=== PATIENT | female | born 1960 | race African-American/Black ===

== ENCOUNTER 2016-12-25 20:51 | Inpatient (IN) ==
--- NOTE | 2016-12-25 21:36 | Emergency Department Note ---
ISoraida Sierra, am scribing for, and in the presence of, Eugenie Adams DO 21: 30. IBryan Debra, DO, personally performed the services described in this documentation, ascribed by Barb Quigley in my presence, and it is both accurate and complete . Arrival - Arrival Chief Complaint: Weakness Stated Complaint: short of breath ED Nursing Triage Note: pt presented to triage via w/c with c/o weakness and decreased appetite x 2 weeks. pt also c/o SOB x 3 days and N/V x 1 day. pt denies fever and chest pain Mode of Arrival: Wheelchair Limitations: No Limitations Source: Patient - History of Present Illness HPI Narrative: Pt is a 56 y/o female that came to the ED with c/o weakness and loss of appetite that has been going on for 2 weeks now. Pt has associated sxs of SOB, N /V that began today, and frequent urination but denies any pain. Pt states she is drinking fluids and thinks her weakness is from the loss of appetite. Pt reports she thought she was doing okay until now. Pt has had a hysterectomy. No other complaints/pain in ED. Onset (ago): week(s) Consistency: constant Severity: mild Severity scale (1-10): 2 Quality: other Date of Last Menstrual Period: hyst Allergies/Adverse Reactions: Allergies Allergy/AdvReac Type Severity Reaction Status Date / Time No Known Allergies Allergy Unverified 12/25/16 21:01 Home Medications: Home Medications Medication Instructions Recorded Confirmed Type Cyclobenzaprine [Flexeril] 10 mg PO DAILY 12/25/16 12/25/16 History Lisinopril 20 mg PO DAILY 12/25/16 12/25/16 History Lovastatin 10 mg PO DAILY 12/25/16 12/25/16 History Potassium Chloride 10 meq PO DAILY 12/25/16 12/25/16 History Review of System - Review of System 12 point system: reviewed and no additional remarkable complaints except as stated - Review of System Constitutional: Present: weakness. Absent: fever Respiratory: Absent: cough Cardiovascular: Absent: chest pain Gastrointestinal: Present: nausea, vomiting. Absent: abdominal pain Genitourinary female: Present: frequency Musculoskeletal: Absent: arm pain, back pain, leg pain, neck pain Skin: Absent: rash Neurological: Absent: headache Psychiatric: Absent: anxiety Medical,Surgical,& Family Hx - Medical History Cardio: History of: Hypertension Endocrine: History of: Dyslipidemia Gastrointestinal: History of: GERD - Social History Smoking Status: Never smoker Frequency of Alcohol Use: None Type of Drug Use: None Exam Vital Signs: Vital Signs Temperature 98.2 F 12/25/16 20:54 Pulse Rate 113 H 12/25/16 22:15 Respiratory Rate 25 H 12/25/16 22:15 Blood Pressure 142/101 12/25/16 22:15 O2 Sat by Pulse Oximetry 99 12/25/16 22:15 - General General appearance: alert, in no apparent distress, obese - Head Head exam: Present: atraumatic, normocephalic - Eye Eye exam: Present: PERRL, EOMI - ENT ENT exam: Present: mucous membranes moist. Absent: mucous membranes dry - Neck Neck exam: Present: full ROM. Absent: tenderness - Chest Chest inspection: Present: symmetric chest wall rise. Absent: tenderness - Respiratory Respiratory exam: Present: normal lung sounds bilaterally. Absent: respiratory distress - Cardiovascular Cardiovascular exam: Present: normal rhythm, tachycardia, normal heart sounds - Abdominal Exam Abdominal exam: Present: soft. Absent: tenderness - Extremities Exam Extremities exam: Present: full ROM. Absent: tenderness - Back Exam Back exam: Present: full ROM. Absent: tenderness - Neurological Exam Neurological exam: Present: alert, oriented X3, CN II-XII intact. Absent: motor sensory deficit - Psychiatric Psychiatric exam: Present: normal affect, normal mood - Skin Skin exam: Present: warm, dry Results - Labs CBC & BMP: 12/25/16 22:03 12/25/16 22:03 Lab Results: I have reviewed the patients labs Labs: Laboratory Tests 12/25/16 12/25/16 22:03 22:03 WBC 12.3 H RBC 5.95 H Hgb 16.1 H Hct 50.7 H MCV 85.2 L MCHC 31.8 L MPV 12.2 H Neut % (Auto) 91.5 H Lymph % (Auto) 5.8 L Neut # (Auto) 11.2 H Lymph # (Auto) 0.7 L Urine Urobilinogen < 2.0 H Urine Leukocytes Small H Laboratory Tests 12/25/16 22:03 Sodium 127 L Potassium 6.3 H* Chloride 96 L Carbon Dioxide 7 L Anion Gap 30.3 H BUN 23 H Creatinine 2.00 H Glucose 1044 H* Calculated Osmolality 311.2 H Calcium 10.3 H Alkaline Phosphatase 235 H Total Protein 8.9 H Globulin 4.5 H Albumin/Globulin Ratio 0.9 L Laboratory Tests 12/25/16 23:43 b-Hydroxybutyric mmol/L 5.2 H Laboratory Tests 12/26/16 00:19 POC Glucose > 500 H* - Diagnostic Findings Procedure: Chest x-ray: report reviewed by me (No acute cardiopulmonary pathology identified. )
--- NOTE | 2016-12-25 21:52 | XRay Report ---
Portable chest Date:[12/25/2016] Clinical history: Shortness of breath Comparison: 02/21/2009 Technique: Portable AP sitting chest Findings: The heart is normal in size. The lungs are clear with unremarkable mediastinum. Minimal degenerative changes are noted. Impression: No acute cardiopulmonary pathology identified. PROCEDURE INTERPRETED AT [facility] DEPARTMENT OF RADIOLOGY Final Report Signed by: Dr. Altagracia Vieira
[2016-12-25 22:12] LABS: Basophils % 0.3 % (0.0-0.8); Hematocrit 50.7 VOL% (35.7-47.0); Hemoglobin 16.1 GM/DL (12.0-16.0); Immature Granulocytes % 0.4 %; Immature Granulocytes Absolute 0.05 #; Lymphocytes # 0.7 10*3/uL (1.4-4.0); Lymphocytes % 5.8 % (21.3-54.2); Mean Corpuscular HGB Conc 31.8 GM/DL (32-36); Mean Corpuscular Hemoglobin 27 PG (27-34); Mean Corpuscular Volume 85.2 FL (87-102); Mean Platelet Volume 12.2 FL (9.6-12.0); Monocytes # 0.2 10*3/uL (0.11-0.8); Neutrophils # 11.2 10*3/uL (1.4-7.4); Neutrophils % 91.5 % (38.7-73.9); Platelet Count 275 T/CUMM (130-400); Red Blood Count 5.95 MC/CUMM (3.8-5.5); Red Cell Distribution Width 14.2 % (9.3-17.3); White Blood Count 12.3 T/CUMM (4-12)
[2016-12-25 22:17] LABS: Apearance,Urine Slightly Hazy (Clear); Bacteria,Urine Occasional /HPF (Few); Bilirubin,Urine Negative (Negative); Blood, Urine Small mg/dL (Negative); Glucose,Urine (UA) >=500 mg/dL (Negative); Ketones,Urine 80 mg/dL (Negative); Mucus,Urine Occasional /LPF (Occasional); Nitrite,Urine Negative (Negative); Protein,Urine Negative; RBC,Urine 18 /HPF (0-4); Squamous Epithelial Cell,Urine Occasional /HPF (0-10); Urine Color Straw (Yellow); Urine Specific Gravity 1.023 (1.001-1.035); Urine Urobilinogen < 2.0 EU/DL (0.2-1.0); WBC,Urine 9 /HPF (0-6)
[2016-12-25] MEDS ORDERED: SODIUM CHLORIDE 0.9% 1,000 ML IV STA (22:50)
[2016-12-25] MEDS ORDERED: ONDANSETRON 4 MG/2 ML VIAL IV STA (22:50)
[2016-12-25] MEDS ORDERED: ONDANSETRON 4 MG/2 ML VIAL ONE (22:56)
[2016-12-25 22:59] LABS: PT Patient Result 10.8 SECS; Partial Thromboplastin Time 24.4 SECS (0-40)
[2016-12-25 23:33] LABS: Alanine Aminotransferase 23 U/L (13-56); Albumin 4.4 G/DL (3.4-5.0); Alkaline Phosphatase 235 U/L (45-117); Aspartate Amino Transferase 13 U/L (0-37); Blood Urea Nitrogen 23 MG/DL (7-18); Calcium 10.3 MG/DL (8.5-10.1); Osmolality,Calculated 311.2 MOS/KG (273-304); Sodium 127 MMOL/L (136-145); Total Protein 8.9 G/DL (6.4-8.3); Troponin I Only < 0.015 NG/ML (0.00-0.045)
[2016-12-25 23:35] LABS: Glucose 1044 MG/DL (74-106); Potassium 6.3 MMOL/L (3.5-5.1)
[2016-12-25] MEDS ORDERED: INSULIN REGULAR 100 UNIT/ML IV STA (23:37)
[2016-12-25] MEDS ORDERED: INSULIN REGULAR 100 UNIT/ML ONE (23:38)
[2016-12-26] MEDS ORDERED: INSULIN REGULAR DRIP 100 ML IV ONE (00:26)
[2016-12-26] MEDS: INSULIN REGULAR DRIP 100 ML IV SCH (00:31)
[2016-12-26] MEDS ORDERED: CYCLOBENZAPRINE 10 MG TABLET PO PRN (01:18)
[2016-12-26] MEDS ORDERED: SODIUM CHLORIDE 0.9% IV PRN (01:19)
[2016-12-26] MEDS ORDERED: SODIUM PHOSPHATE IV PRN (01:19)
[2016-12-26] MEDS ORDERED: MAGNESIUM SULF RIDER 4 GM in PREMIX 1 EACH IV PRN (01:19)
[2016-12-26] MEDS ORDERED: MAGNESIUM SULF RIDER 2 GM in PREMIX 1 EACH IV PRN (01:19)
[2016-12-26] MEDS ORDERED: SODIUM BICARB INJ 100 MEQ in STERILE WATER INJ 400 ML IV PRN (01:19)
[2016-12-26] MEDS ORDERED: DEXTROSE 50% 25 GM/50 ML VIAL IV PRN ×2 (01:19)
--- NOTE | 2016-12-26 01:23 | Hospitalist History & Physical ---
Assessment and Plan (1) DKA (diabetic ketoacidoses) Status: Acute Current Visit: Yes (2) Newly diagnosed diabetes Status: Acute Current Visit: Yes (3) Acute renal failure due to tubular necrosis Status: Acute Current Visit: Yes (4) Hyperkalemia Status: Acute Current Visit: Yes (5) Nausea Status: Acute Assessment and plan: Plan: Admit to ICU, start insulin infusion, check blood and urine cultures. Aggressive hydration, diabetes education, supportive care otherwise for nausea. Current Visit: Yes History of Present Illness Chief complaint: nausea and vomiting History of present illness: Ms. Nava is a 56 year old female with a few days of malaise, nausea and "just not feeling good." She denies fever, chills, chest pain, shortness of breath or diarrhea. She continued emergency room where her blood glucose was approximately 1000. Her lab work is consistent with DKA in the setting of newly discovered diabetes. She has a history of hypertension and dyslipidemia. She has had poor by mouth intake due to nausea, lack of energy. No pain no skin lesions, No headache. She denies dysuria however UA is consistent with possible UTI. I have been asked to admit the patient for further workup and treatment of DKA. Home Medications Medication Instructions Recorded Confirmed Type Cyclobenzaprine [Flexeril] 10 mg PO Q8H PRN 12/25/16 12/26/16 History Lisinopril 20 mg PO DAILY 12/25/16 12/25/16 History Lovastatin 10 mg PO DAILY 12/25/16 12/25/16 History Potassium Chloride 2 tablet PO BID 12/25/16 12/26/16 History Allergies Allergy/AdvReac Type Severity Reaction Status Date / Time No Known Allergies Allergy Unverified 12/25/16 21:01 Medical,Surgical,& Family Hx - Medical History Cardio: History of: Hypertension Endocrine: History of: Dyslipidemia Gastrointestinal: History of: GERD - Surgical History Reproductive Surgeries: Surgical HX of;: Hysterectomy - Family History Family History: noncontributory - Social History Smoking Status: Never smoker Frequency of Alcohol Use: None Type of Drug Use: None Marital Status: Unknown Functional capacity: independent ambulation Review of systems: A 12 point review of systems is negative except as specified in the HPI Exam - Constitutional Vitals: Period Temp Pulse Resp BP Sys/Martinez Pulse Ox Last 24 Hr 98.2 F 113-121 18-25 117-143/88-101 99-100 Exam: EXAM: CONSTITUTIONAL: non toxic, NAD HEENT: NC, AT, OP exhibits dry mucous membranes, SIMONE, EOMI CV: RRR no m/g/r RESP: clear B/L, no w/r/r GI: abd soft, NT, ND, +bowel sounds INTEGUMENTARY: no lesions or rash EXTREMITIES: no c/c/e NEURO: no focal deficits PSYCH: Drowsy, easily arousable and oriented Results - Labs CBC & BMP: 12/26/16 03:31 12/26/16 03:31 Lab Results: I have reviewed the past 24 hour labs - Diagnostic Findings Procedure: Chest x-ray: image reviewed by me, report reviewed by me
[2016-12-26] MEDS ORDERED: INSULIN REGULAR DRIP 100 ML IV SCH (01:30)
[2016-12-26 01:57] LABS: Band Neutrophils 2 % (0-10); Lymphocytes 7 % (20-55); Segmented Neutrophils 89 % (50-85); Total Cells Counted 100
[2016-12-26 01:58] LABS: Platelet Estimate Normal
[2016-12-26 02:11] LABS: Calcium 9.2 MG/DL (8.5-10.1); Osmolality,Calculated 310.2 MOS/KG (273-304); Potassium 4.6 MMOL/L (3.5-5.1)
[2016-12-26] MEDS ORDERED: SODIUM CHLORIDE 0.9% 1,000 ML IV ONE (02:30)
--- NOTE | 2016-12-26 03:13 | EKG Report ---
Stationary ECG Study [facility] Test Date: 12/26/2016 3:12:18 AM Pat Name: NANCY MAN Department: Room: 117 Gender: F Interventional Radiology Tech: MELODY : 1960 Requested by: Foster Jansen Order Number: [id number] Reading MD: KAYLIN GRIFFIN Intervals Sage Rate: 102 P: 51 ID: [id number] QRS: 40 QRSD: 90 T: 46 QT: 350 QTc: 409 Interpretive Statements SINUS TACHYCARDIA Electronically Signed On 12-26-16 22:31:07 CYTOTECHNOLOGIST SUPERVISOR by KAYLIN GRIFFIN [email or web address]
[2016-12-26 03:34] LABS: Allen Test Positive; Pt O2 Delivery Device Room Air
[2016-12-26 03:36] LABS: ABG Base Excess -20.4 MMOL/L (-2.5-2.5); ABG HCO3 4.7 MMOL/L (20-26); ABG Oxygen Saturation 98.3 % (95-100); ABG PH 7.211 (7.35-7.45); ABG PO2 136.1 MM HG (80-95)
[2016-12-26 03:38] LABS: ABG PCO2 11.9 MM HG (35-48)
[2016-12-26 03:41] LABS: Basophils % 0.1 % (0.0-0.8); Hematocrit 39.8 VOL% (35.7-47.0); Hemoglobin 12.9 GM/DL (12.0-16.0); Immature Granulocytes % 0.6 %; Immature Granulocytes Absolute 0.09 #; Lymphocytes # 1.5 10*3/uL (1.4-4.0); Lymphocytes % 9.3 % (21.3-54.2); Mean Corpuscular HGB Conc 32.4 GM/DL (32-36); Mean Corpuscular Hemoglobin 27 PG (27-34); Mean Corpuscular Volume 84.1 FL (87-102); Mean Platelet Volume 11.5 FL (9.6-12.0); Monocytes # 0.9 10*3/uL (0.11-0.8); Monocytes % 5.5 % (1.7-12.7); Neutrophils # 13.4 10*3/uL (1.4-7.4); Neutrophils % 84.5 % (38.7-73.9); Platelet Count 241 T/CUMM (130-400); Red Blood Count 4.73 MC/CUMM (3.8-5.5); Red Cell Distribution Width 13.2 % (9.3-17.3); White Blood Count 15.9 T/CUMM (4-12)
[2016-12-26] MEDS: SODIUM CHLORIDE 0.9% 1,000 ML IV SCH ×5 (03:46→12:48)
[2016-12-26 03:56] LABS: Magnesium 2.3 MG/DL (1.8-2.4); Phosphorous 1.5 MG/DL (2.5-4.9)
[2016-12-26 03:58] LABS: Calcium 8.6 MG/DL (8.5-10.1); Potassium 4.4 MMOL/L (3.5-5.1)
[2016-12-26] MEDS: cefTRIAXone 1,000 MG in SODIUM CHLORIDE 0.9% 100 ML IV SCH (04:06)
--- NOTE | 2016-12-26 04:09 | EKG Report ---
Stationary ECG Study [facility] ER Test Date: 12/25/2016 9:27:11 PM Pat Name: NANCY MAN Department: Room: 117 Gender: F Traffic Expert: : 1960 Requested by: Eugenie Adams Order Number: [id number] Reading MD: KAYLIN GRIFFIN Intervals [place] Rate: 115 P: 48 DE: 151 QRS: 56 QRSD: 96 T: 52 QT: 334 QTc: 402 Interpretive Statements SINUS TACHYCARDIA POOR R-WAVE PROGRESSION Electronically Signed On 12-26-16 22:29:22 KISS MIXER by KAYLIN GRIFFIN [email or web address]
[2016-12-26 05:56] LABS: ABG Base Excess -19.3 MMOL/L (-2.5-2.5); ABG HCO3 6.4 MMOL/L (20-26); ABG Oxygen Saturation 97.8 % (95-100); ABG PO2 114.4 MM HG (80-95); ABG TCO2 6.9 MMOL/L (23-27); Allen Test Positive; Pt O2 Delivery Device Room Air
[2016-12-26 05:59] LABS: ABG PCO2 16.6 MM HG (35-48); ABG PH 7.203 (7.35-7.45)
[2016-12-26] MEDS ORDERED: INSULIN REGULAR 100 UNIT/ML IV ONE (06:19)
[2016-12-26 08:16] LABS: ABG Base Excess -17.9 MMOL/L (-2.5-2.5); ABG HCO3 11.3 MMOL/L (20-26); ABG Oxygen Saturation 94.9 % (95-100); ABG PCO2 21.8 MM HG (35-48); ABG PH 7.216 (7.35-7.45); ABG PO2 79.5 MM HG (80-95)
[2016-12-26] MEDS: ENOXAPARIN 40 MG/0.4 ML SYRINGE SUBCUT SCH (09:04)
[2016-12-26] MEDS: LOVASTATIN 20 MG TABLET PO SCH (09:04)
[2016-12-26 10:39] LABS: Calcium 8.3 MG/DL (8.5-10.1); Potassium 4.8 MMOL/L (3.5-5.1)
[2016-12-26 10:56] LABS: ABG Base Excess -15.7 MMOL/L (-2.5-2.5); ABG HCO3 12.7 MMOL/L (20-26); ABG Oxygen Saturation 98.2 % (95-100); ABG PCO2 23.3 MM HG (35-48); ABG PH 7.254 (7.35-7.45); ABG TCO2 9.3 MMOL/L (23-27)
[2016-12-26] MEDS ORDERED: SODIUM CHLORIDE 0.45% 1,000 ML IV SCH (12:00)
[2016-12-26] MEDS: SODIUM CHLOR 0.45% KCL 20 MEQ 20 MEQ/1,000 ML BAG IV SCH ×2 (12:51→18:08)
[2016-12-26 14:28] LABS: Calcium 8.1 MG/DL (8.5-10.1); Osmolality,Calculated 292.8 MOS/KG (273-304); Potassium 3.9 MMOL/L (3.5-5.1)
[2016-12-26] MEDS ORDERED: SODIUM CHLOR 0.45% KCL 20 MEQ 20 MEQ/1,000 ML BAG IV SCH (17:30)
[2016-12-26] MEDS ORDERED: DEXT 5% NACL 0.45% KCL 20 MEQ 20 MEQ/1,000 ML BAG IV SCH (17:30)
[2016-12-26] MEDS: DEXTROSE 5% NACL 0.45% 1,000 ML IV SCH (17:45)
[2016-12-26 17:54] LABS: Calcium 8.5 MG/DL (8.5-10.1); Potassium 3.7 MMOL/L (3.5-5.1)
[2016-12-26] MEDS ORDERED: INSULIN GLARGINE 100 UNIT/ML SUBCUT ONE (18:04)
[2016-12-26] MEDS: INSULIN GLARGINE 100 UNIT/ML SUBCUT SCH ×2 (18:05→20:48)
[2016-12-26] MEDS: INSULIN REGULAR 100 UNIT/ML SUBCUT SCH ×2 (18:05→21:50)
[2016-12-26] MEDS ORDERED: ONDANSETRON 4 MG/2 ML VIAL IV PRN (18:13)
[2016-12-27] MEDS: INSULIN REGULAR DRIP 100 ML IV SCH (00:27)
[2016-12-27] MEDS: DEXTROSE 5% NACL 0.45% 1,000 ML IV SCH (02:28)
[2016-12-27] MEDS: cefTRIAXone 1,000 MG in SODIUM CHLORIDE 0.9% 100 ML IV SCH (02:36)
[2016-12-27] MEDS: SODIUM CHLORIDE 0.45% 1,000 ML IV SCH ×3 (02:36→14:53)
[2016-12-27] MEDS: INSULIN REGULAR 100 UNIT/ML SUBCUT SCH ×6 (02:37→20:52)
[2016-12-27 04:58] LABS: Basophils % 0.3 % (0.0-0.8); Eosinophils % 0.1 % (0.00-10.9); Hematocrit 32.4 VOL% (35.7-47.0); Hemoglobin 11.2 GM/DL (12.0-16.0); Immature Granulocytes % 0.3 %; Immature Granulocytes Absolute 0.03 #; Lymphocytes # 2.2 10*3/uL (1.4-4.0); Lymphocytes % 21.8 % (21.3-54.2); Mean Corpuscular HGB Conc 34.6 GM/DL (32-36); Mean Corpuscular Hemoglobin 28 PG (27-34); Mean Corpuscular Volume 80.6 FL (87-102); Mean Platelet Volume 11.3 FL (9.6-12.0); Monocytes # 0.6 10*3/uL (0.11-0.8); Monocytes % 5.6 % (1.7-12.7); Neutrophils # 7.2 10*3/uL (1.4-7.4); Neutrophils % 71.9 % (38.7-73.9); Platelet Count 191 T/CUMM (130-400); Red Blood Count 4.02 MC/CUMM (3.8-5.5); Red Cell Distribution Width 13.4 % (9.3-17.3)
[2016-12-27 05:18] LABS: Calcium 8.5 MG/DL (8.5-10.1); Osmolality,Calculated 288.4 MOS/KG (273-304); Potassium 3.3 MMOL/L (3.5-5.1)
[2016-12-27 05:25] LABS: Risk Ratio 3.5
[2016-12-27] MEDS: POTASSIUM CHLORIDE 20 MEQ TABLET PO PRN ×3 (06:35→16:43)
--- NOTE | 2016-12-27 08:07 | Hospitalist Progress Note ---
Assessment and Plan (1) DKA (diabetic ketoacidoses) Status: Resolved Current Visit: Yes (2) Newly diagnosed diabetes Status: Acute Current Visit: Yes (3) Acute renal failure due to tubular necrosis Status: Resolved Current Visit: Yes (4) Hyperkalemia Status: Resolved Current Visit: Yes (5) Oral candidiasis Status: Acute Current Visit: Yes (6) Nausea Status: Acute Assessment and plan: Plan: Admit to ICU, start insulin infusion, check blood and urine cultures. Aggressive hydration, diabetes education, supportive care otherwise for nausea. 12/27: We'll start diabetic diet, art educator to see. Continue Lantus and sliding scale for now may adjust this as needed. We'll also start nystatin swish and swallow for oral thrush. Continue empiric antibiotics for now. Hopefully get her out of bed to the chair, RENNY Bucio, may transfer her to the floor later today. Current Visit: Yes Hospitalist: Subjective Interval history: Ms. Nava is off the insulin infusion, she is been tolerating clear liquids, she is on Lantus and sliding scale. Going to try her on a diabetic soft diet. She appears to have some thrush and sore throat, so we'll start her on some nystatin swish and swallow. Otherwise she has no complaints and wants to try getting up into the chair. Exam - Constitutional Vitals: Period Temp Pulse Resp BP Sys/Martinez Pulse Ox Last 24 Hr 97.1 F-98.5 F 88-106 10-28 99-172/64-92 98-100 Exam: EXAM: CONSTITUTIONAL: non toxic, NAD HEENT: NC, AT, OP mild thrush, SIMONE, EOMI CV: RRR no m/g/r RESP: clear B/L, no w/r/r GI: abd soft, NT, ND, +bowel sounds INTEGUMENTARY: no lesions or rash EXTREMITIES: no c/c/e NEURO: no focal deficits PSYCH: Awake and alert Results - Labs CBC & BMP: 12/27/16 04:18 12/27/16 04:18 Lab Results: I have reviewed the past 24 hour labs
[2016-12-27] MEDS: LOVASTATIN 20 MG TABLET PO SCH (08:32)
[2016-12-27] MEDS: NYSTATIN 500,000 UNIT/5 ML UDCUP SWISH/SWAL SCH ×4 (08:32→20:52)
[2016-12-27] MEDS: ENOXAPARIN 40 MG/0.4 ML SYRINGE SUBCUT SCH (08:32)
[2016-12-27] MEDS ORDERED: INSULIN REGULAR 100 UNIT/ML ONE (12:39)
[2016-12-27] MEDS: INSULIN GLARGINE 100 UNIT/ML SUBCUT SCH (20:52)
[2016-12-28] MEDS: INSULIN REGULAR 100 UNIT/ML SUBCUT SCH ×6 (00:27→21:02)
[2016-12-28] MEDS: POTASSIUM CHLORIDE 20 MEQ TABLET PO PRN ×4 (00:44→06:34)
[2016-12-28] MEDS: INSULIN REGULAR DRIP 100 ML IV SCH (00:45)
[2016-12-28] MEDS: SODIUM CHLORIDE 0.45% 1,000 ML IV SCH ×4 (02:41→22:44)
[2016-12-28] MEDS: cefTRIAXone 1,000 MG in SODIUM CHLORIDE 0.9% 100 ML IV SCH (03:47)
[2016-12-28 04:31] LABS: Basophils % 0.4 % (0.0-0.8); Eosinophils # 0.1 10*3/uL (0.0-0.87); Eosinophils % 0.7 % (0.00-10.9); Hematocrit 33.5 VOL% (35.7-47.0); Hemoglobin 11.3 GM/DL (12.0-16.0); Immature Granulocytes % 0.1 %; Immature Granulocytes Absolute 0.01 #; Lymphocytes # 3.4 10*3/uL (1.4-4.0); Lymphocytes % 47.6 % (21.3-54.2); Mean Corpuscular HGB Conc 33.7 GM/DL (32-36); Mean Corpuscular Hemoglobin 27 PG (27-34); Mean Corpuscular Volume 80.7 FL (87-102); Mean Platelet Volume 11.9 FL (9.6-12.0); Monocytes # 0.5 10*3/uL (0.11-0.8); Monocytes % 6.2 % (1.7-12.7); Neutrophils # 3.3 10*3/uL (1.4-7.4); Platelet Count 184 T/CUMM (130-400); Red Blood Count 4.15 MC/CUMM (3.8-5.5); Red Cell Distribution Width 13.1 % (9.3-17.3); White Blood Count 7.2 T/CUMM (4-12)
[2016-12-28] MEDS: ENOXAPARIN 40 MG/0.4 ML SYRINGE SUBCUT SCH (10:20)
[2016-12-28] MEDS: LOVASTATIN 20 MG TABLET PO SCH (10:21)
--- NOTE | 2016-12-28 11:54 | Hospitalist Progress Note ---
Assessment and Plan (1) DM2 (diabetes mellitus, type 2) Status: Acute Assessment and plan: The patient has improved with hydration and initiation of insulin. The patient has had evaluation by public health educator and the patient is now ready to start oral antidiabetic medications and transferred to the floor. Current Visit: Yes Qualifiers: Diabetes mellitus complication status: with hyperosmolarity Diabetes mellitus complication detail: without coma Diabetes mellitus computer terminal operator insulin use: without computer terminal operator use Qualified Code(s): E11.00 - Type 2 diabetes mellitus with hyperosmolarity without nonketotic hyperglycemic- hyperosmolar coma ([facility]) (2) DKA (diabetic ketoacidoses) Status: Resolved Current Visit: Yes Qualifiers: Diabetes mellitus type: type 2 Diabetes mellitus complication detail: without coma Qualified Code(s): E13.10 - Other specified diabetes mellitus with ketoacidosis without coma Hospitalist: Subjective Interval history: The patient is ready for transfer to the floor. The patient is not having any further polyuria, but appetite has not yet returned. The patient does not complain of shortness of breath or angina. Exam - Constitutional Vitals: Period Temp Pulse Resp BP Sys/Martinez Pulse Ox Last 24 Hr 98.4 F-98.8 F 79-98 10-20 108-155/56-90 96-100 General appearance: no acute distress - Respiratory Respiratory exam: Present: clear to auscultation bilaterally - Cardiovascular Cardiovascular exam: Present: regular rate and rhythm - GI/Abdominal GI/Abdominal exam: Present: normal bowel sounds Results - Labs CBC & BMP: 12/28/16 03:21 12/27/16 22:57 Lab Results: I have reviewed the past 24 hour labs
[2016-12-28] MEDS: NYSTATIN 500,000 UNIT/5 ML UDCUP SWISH/SWAL SCH ×4 (12:42→21:02)
[2016-12-28] MEDS: metFORMIN 500 MG TABLET PO SCH (16:48)
[2016-12-28] MEDS: GLIMEPIRIDE 4 MG TABLET PO SCH (16:48)
[2016-12-28] MEDS: INSULIN GLARGINE 100 UNIT/ML SUBCUT SCH (21:02)
[2016-12-29] MEDS: cefTRIAXone 1,000 MG in SODIUM CHLORIDE 0.9% 100 ML IV SCH (02:51)
[2016-12-29 05:47] LABS: Calcium 8.1 MG/DL (8.5-10.1); Osmolality,Calculated 287.8 MOS/KG (273-304); Potassium 3.3 MMOL/L (3.5-5.1)
[2016-12-29 07:26] LABS: Hepatitis B Surface Ag Quant < 0.10 Index; Hepatitis B Surface Ag Result Negative (Negative); Hepatitis C Virus Ab Quant 0.06 Index; Hepatitis C Virus Ab Result Negative (Negative)
[2016-12-29] MEDS: ENOXAPARIN 40 MG/0.4 ML SYRINGE SUBCUT SCH (10:02)
[2016-12-29] MEDS: metFORMIN 500 MG TABLET PO SCH (10:02)
[2016-12-29] MEDS: LOVASTATIN 20 MG TABLET PO SCH (10:02)
[2016-12-29] MEDS: INSULIN REGULAR 100 UNIT/ML SUBCUT SCH (10:03)
[2016-12-29] MEDS: GLIMEPIRIDE 4 MG TABLET PO SCH (10:03)
[2016-12-29] MEDS: NYSTATIN 500,000 UNIT/5 ML UDCUP SWISH/SWAL SCH (10:03)
[2016-12-29 10:50] VITALS: BP 126/65
--- NOTE | 2016-12-29 12:11 | Discharge Summary ---
Hospital Course - Hospital Course Hospital Course: Mrs. Nava was admitted to the hospital with new onset diabetes mellitus type 2 and hyperosmolar state. The patient was treated in the intensive care unit with fluid resuscitation, insulin infusion, and supportive care. The patient was treated for lung infection and UTI. The patient has improved and blood glucose is better controlled. The patient is tolerating diet well. The patient is ready for discharge home and should be reasonably controlled on oral medication. The patient will follow-up with Dr. Crump as an outpatient as previously appointed. Dr. Crump may need to add long-acting insulin if the patient is unable to achieve reasonable glucose control. On the date of discharge, chest is clear, heart has regular rate and rhythm, and abdomen soft. - Time spent with patient Time with patient DS: Greater than 30 minutes Diagnosis - Discharge Diagnosis (1) DM2 (diabetes mellitus, type 2) Status: Chronic (2) DKA (diabetic ketoacidoses) Status: Resolved Discharge Plan - Discharge Data Disposition: Disch To Home/Self Care Condition at Discharge: Stable Discharge Diet: diabetic diet Activity: resume usual activities as tolerated - Discharge Medications New Glimepiride [Amaryl] 4 mg PO BID W/MEALS #100 tablet Metformin HCl [Glucophage] 1,000 mg PO BIDAC #90 tablet Continue Cyclobenzaprine [Flexeril] 10 mg PO Q8H PRN PRN Reason: Muscle Pain Potassium Chloride 2 tablet PO BID Lovastatin 10 mg PO DAILY Lisinopril 20 mg PO DAILY - Follow Up or Referral Follow Up: Sergo Norman [Physician] - - Forms/Instructions Exam - Constitutional Vitals: Period Temp Pulse Resp BP Sys/Martinez Pulse Ox Last 24 Hr 96.8 F-98.4 F 92-101 18-24 107-138/64-90 96-100 Discharge Results Labs on day of discharge: Labs from last 24 hours 12/29/16 12/29/16 12/28/16 08:25 04:50 21:40 Sodium 144 Potassium 3.3 L Chloride 109 H Carbon Dioxide 21 Anion Gap 17.3 H BUN 4 L Creatinine 0.80 GFR Calculation 109 BUN/Creatinine Ratio 5.00 L Glucose 187 H POC Glucose 258 H Calculated Osmolality 287.8 Calcium 8.1 L Hep Bs Antigen Negative Hepatitis C Antibody Negative HIV-1 Ab Rapid Screen 12/28/16 12/28/16 12/28/16 21:40 19:56 16:02 Sodium Potassium Chloride Carbon Dioxide Anion Gap BUN Creatinine GFR Calculation BUN/Creatinine Ratio Glucose POC Glucose 163 H 260 H Calculated Osmolality Calcium Hep Bs Antigen Hepatitis C Antibody HIV-1 Ab Rapid Screen Negative 12/28/16 12/28/16 13:30 12:15 Sodium Potassium 3.7 Chloride Carbon Dioxide Anion Gap BUN Creatinine GFR Calculation BUN/Creatinine Ratio Glucose POC Glucose 303 H Calculated Osmolality Calcium Hep Bs Antigen Hepatitis C Antibody HIV-1 Ab Rapid Screen Preliminary micro results at discharge 12/26/16 03:31 Blood Culture - Preliminary Blood No growth at 3 days 12/26/16 03:31 Blood Culture - Preliminary Blood No growth at 3 days DS: Provider Date of admission: 12/26/16 01:19 Primary care physician: . No PCP Attending physician on admission: Foster Bedoya DO Consults: 12/26/16 02:24 Consult to Pharmacy [CONS] Routine Reason for Pharmacy Consult: Adjust Meds Renal Funct Discharging clinician: Natanael Starks MD
--- NOTE | 2017-01-05 13:03 | Physician Query Form ---
CLICK EDIT DOCUMENT TO SELECT QUERY ANSWER --> OK --> SIGN Shelly Botello RN, CCDS Certified Clinical Children'S Lunchroom Supervisor W) [phone] (f) [phone] [email or web address] PROVIDERS: Make your selection(s) from the choices in EACH section by typing an "x" and enter comments in the comment section. Please use your independent medical judgment in providing your response. This request does not imply that any particular answer is desired or expected. CLINICAL INDICATORS: (Providers should not edit this section) The medical record indicates that the patient was admitted with DM, "Acute renal failure due to tubular necrosis" is mentioned on the 7th, and the patient was treated with 1,000 bolus in the ER. Based on the above, could you clarify the appropriate diagnosis, if significant , that supports the above abnormalities and additional evaluation, monitoring, and/or treatment rendered: ( x) ATN is a confirmed diagnosis ( ) ATN is ruled out ( ) Other, please specify: ( ) Clinically unable to determine If ATN is a confirmed diagnosis can you please provide clinical indicators to support the diagnosis of ATN: ( x) prolonged dehydration, recovery of renal fcn with IV fluids COMMENTS: Use of terms such as suspected, likely, or probable (associated with a specific diagnosis that is being evaluated, monitored, or treated as if it exists) are acceptable and can be restated in the discharge summary if not ruled out. MTDD
== END 2016-12-29 14:40 | disposition home or self-care (01) | DRG 637 ==
LOC: N.ED 20:51 → SUATTDRO 12-26 01:19 → N.EDINP 12-26 01:19 → N.ICU 12-26 02:01 → N.4E 12-28 18:28
PROVIDERS: ADMIT Internal Medicine; ATTEND Internal Medicine